=== PATIENT | male | born 1990 | race Caucasian/White ===

== ENCOUNTER 2022-09-26 11:18 | Emergency (ER) | payer SELFPAY ==
[2022-09-26 11:19] VITALS: BP 159/83; PULSE 70; RESP 18; TEMP 36.5; O2SAT 97
--- NOTE | 2022-09-26 11:42 | ED.SKABFB ---
HPI - Skin/Abscess/Foreign Bdy General Chief complaint: Skin/Abscess/Foreign Body Stated complaint: unable to swallow liquids Time Seen by Provider: 09/26/22 11:36 History of Present Illness HPI narrative: 32-year-old male here for evaluation of sensation of food bolus. Patient states that yesterday he had biscuits gravy and fried chicken and since then he has been unable to swallow any p.o. including his own secretions. Feels a sensation right at his sternal notch. States this is happened in the past but the bolus has passed spontaneously. He has never had an EGD or seen a GI doctor. Related Data Allergies Allergy/AdvReac Type Severity Reaction Status Date / Time No Known Allergies Allergy Verified 09/26/22 11:37 Review of Systems Review of Systems: Gen.: Denies fevers or chills Eyes: Denies eye pain or visual change ENT: Denies congestion Respiratory: Denies shortness of breath or cough CV: Denies chest pain or palpitations GI: Reports food bolus sensation. Denies abdominal pain nausea, emesis or diarrhea denies burning, urgency, frequency or hematuria Musculoskeletal: Denies back pain or muscle pain Neuro: Denies numbness, tingling, weakness or focal weakness Skin: Denies rash Except as documented, all other systems reviewed and negative Exam Narrative: APPEARANCE: Spitting secretions into water bottle. Well appearing, no pain in distress, well-nourished. Head: Normocephalic and atraumatic. EYES: PERRLA/EOMI, conjunctivae clear NOSE: No nasal drainage EARS: External ear normal in appearance THROAT: Oropharynx is clear. Mucous membranes are moist. NECK: Supple. No adenopathy, no masses. RESPIRATORY: Airway patent, respirations nonlabored. Clear to auscultation bilaterally, no rales, rhonchi, wheezing. CARDIOVASCULAR: Regular rate and rhythm without murmurs, rubs, or gallops. ABDOMINAL: Normoactive bowel sounds. Soft, nontender, nondistended. No rebound tenderness or guarding. MUSCULOSKELETAL: Extremities are warm and well-perfused. Moves all extremities well. No edema. NEURO: Normal speech. No focal neurologic deficits. SKIN: Skin is warm and dry. No rashes. PSYCHIATRIC: Normal affect/mood.. Course Vital Signs Vital signs: Vital Signs Temperature 97.7 F 09/26/22 11:19 Pulse Rate 70 09/26/22 11:19 Respiratory Rate 18 09/26/22 11:19 Blood Pressure 159/83 H 09/26/22 11:19 Pulse Oximetry 97 09/26/22 11:19 Temperature 97.7 F 09/26/22 11:19 Pulse Rate 70 09/26/22 11:19 Respiratory Rate 18 09/26/22 11:19 Blood Pressure 159/83 H 09/26/22 11:19 Pulse Oximetry 97 09/26/22 11:19 MDM - Skin/Abscess/Foreign Bdy MDM Narrative Medical decision making narrative: 32-year-old male here for evaluation of food bolus sensation x24 hours, unable to tolerate his secretions or p.o. Patient is nontoxic in appearance with normal vital signs. He was given a soda with immediate improvement of his sensation, not tolerating secretions and feeling much better. No need for labs imaging or GI consult at this time. He was discharged home to follow-up with his PMD. Discharge Plan Discharge Clinical Impression: Bolus impaction of digestive tract Patient Disposition: Home, Self-Care Condition: Stable Instructions: Antibiotic Form, Abdominal Pain (ED) Additional Instructions: You were given a soda today with improvement in your sensation of food bolus. Please return to the ED if the sensation returns you cannot tolerate your secretions. Follow-up/Referrals: PHYSICIAN,[employer] [Primary Care Provider] -
--- NOTE | 2022-09-26 11:58 | PC.NURSE ---
Pt is back to normal, able to swallow after drinking carbonated drink.
== END 2022-09-26 11:55 | disposition home or self-care (01) ==
LOC: ANHED 11:47
PROVIDERS: Emergency Provider Physician Assistant
DX: T18.128A Food in esophagus causing other injury, initial encounter (principal); X58.XXXA Exposure to other specified factors, initial encounter
CPT/HCPCS: 99282